=== PATIENT | female | born 1950 | race Caucasian/White ===

== ENCOUNTER 2020-03-03 11:56 | Day surgery (SDC) | payer MEDICARE ==
[~2020-03-03] VITALS: Ht 149.9 cm; Wt 46.7 kg
[2020-03-03] MEDS ORDERED: LACTATED RINGERS 1,000 ML IV SCH (12:51)
[2020-03-03] MEDS ORDERED: DIAZEPAM PO (13:00)
[2020-03-03] MEDS ORDERED: CHLORHEXIDINE 15 ML UDC MM ONE (13:00)
[2020-03-03] MEDS ORDERED: IBAN150T15 PO (13:00)
[2020-03-03] MEDS ORDERED: TIOT18CA INH (13:00)
[2020-03-03] MEDS ORDERED: BUDE10.2 INH (13:00)
[2020-03-03] MEDS ORDERED: EZET10TA70 PO (13:00)
[2020-03-03] MEDS ORDERED: CHOL10003 PO (13:00)
[2020-03-03] MEDS ORDERED: MONT10TA11 PO (13:00)
[2020-03-03] MEDS ORDERED: MORPHINE PO (13:00)
[2020-03-03] MEDS ORDERED: CELE200C PO (13:00)
[2020-03-03] MEDS ORDERED: FLUT15.845 INH (13:00)
[2020-03-03] MEDS ORDERED: OMEP-110 PO (13:00)
[2020-03-03 13:20] VITALS: BP 118/73
[2020-03-03] MEDS ORDERED: PROPOFOL 10 MG/ML, 20ML ONE (13:37)
[2020-03-03] MEDS ORDERED: PROPOFOL 10 MG/ML, 50ML ONE (13:37)
[2020-03-03] MEDS ORDERED: DIPHENHYDRAMINE 50 MG/ML, 1ML IVPush PRN (14:00)
[2020-03-03] MEDS ORDERED: FENTANYL PF 100 MCG/2ML IV PRN (14:00)
[2020-03-03] MEDS ORDERED: ONDANSETRON 2MG/ML, 2ML IVPush PRN (14:00)
[2020-03-03] MEDS ORDERED: DIAZEPAM 5 MG/ML, 2ML IVPush PRN (14:00)
[2020-03-03] MEDS ORDERED: EPHEDRINE 50 MG/ML, 1ML IVPush PRN (14:00)
[2020-03-03] MEDS ORDERED: EPHEDRINE 50 MG/ML, 1ML IM PRN (14:00)
[2020-03-03] MEDS ORDERED: LABETALOL 5MG/ML, 20ML IV PRN (14:00)
== END 2020-03-03 15:15 | disposition home or self-care (01) ==
LOC: OUT 11:56
PROVIDERS: ATTEND Internal Medicine Gastroenterology
DX: K83.8 Other specified diseases of biliary tract (principal); Z20.828 Contact with and (suspected) exposure to other viral communicable diseases; K80.80 Other cholelithiasis without obstruction; K29.50 Unspecified chronic gastritis without bleeding; K20.9 Esophagitis, unspecified; J44.9 Chronic obstructive pulmonary disease, unspecified; M19.90 Unspecified osteoarthritis, unspecified site; M79.7 Fibromyalgia; Z88.5 Allergy status to narcotic agent; Z88.8 Allergy status to other drugs, medicaments and biological substances
CPT/HCPCS: 36415; 43239; 43259; 87635; 88305; 93005; J2704; J7120